=== PATIENT | female | born 1960 | race African-American/Black ===

== ENCOUNTER 2019-06-25 06:19 | Day surgery (SDC) | payer OTHER ==
[~2019-06-25] VITALS: Ht 162.6 cm; Wt 73.9 kg
[~2019-06-25 06:19] MED LIST: LISINOPRIL-HCT1 EAC4 PO
[2019-06-25 06:47] LABS: BASOPHILS 0.3 % (0-2); EOSINOPHILS 1.5 % (0-7); HEMATOCRIT 38.1 % (36.0-48.0); HEMOGLOBIN 12.7 g/dL (12-16); IMMATURE GRANULOCYTES 0.3 % (0-5); LYMPHOCYTES 34.1 % (15-50); MCH 28.3 pg (26.0-34.0); MCHC 33.3 g/dL (31.0-37.0); MCV 84.9 fL (80.0-100.0); MEAN PLATELET VOLUME 11.1 fL (7.4-10.4); MONOCYTES 4.1 % (2-11); NEUTROPHILS 59.7 % (40-80); PLATELET COUNT 175 10x3/uL (130-400); RBC 4.49 10x6/uL (4.00-5.40); RDW 14.1 % (11.5-14.5); WBC 6.9 10x3/uL (4.8-10.8)
[2019-06-25 07:11] LABS: CALC OSMOLALITY 283 mosm/kg (275-300); CARBON DIOXIDE 30.2 mmol/L (21.0-32.0); CHLORIDE - SERUM 106 mmol/L (98-107); CREATININE - SERUM 0.6 mg/dL (0.6-1.3); GLUCOSE 100 mg/dL (74-106); POTASSIUM - SERUM 3.7 mmol/L (3.5-5.1); SODIUM 142 mmol/L (136-145); UREA NITROGEN 16 mg/dL (7-18); eGFR NON AFRICAN AMERICAN > 90 mL/min (90-120)
[2019-06-25 07:40] VITALS: BP 146/84; Ht 162.6 cm; Wt 73.9 kg
[2019-06-25] MEDS ORDERED: HYDROCODON-ACE1 EA10 PO (09:46)
--- NOTE | 2019-06-25 12:13 | NUR ---
PATIENT AMBULATES TO BATHROOM WITHOUT UNSTEADINESS OR DIZZINESS. VOIDS LARGE AMOUNT URINE IN TOILET WITHOUT DIFFICULTY. RIGHT AC PIV DC'D WITH TIP INTACT. DISCHARGE INSTRUCTIONS REVIEWED WITH PATIETN AND DAUGHTER.
--- NOTE | 2019-07-02 13:49 | OP ---
PATIENT NAME: ADILSON DOAN MEDICAL RECORD: [id number] :60 LOCATION:D.OPS ADMISSION DATE: SURGEON: MILTON ANDREWS MD DATE OF OPERATION: 06/25/2019 PREOPERATIVE DIAGNOSES: 1. Gallstones. 2. Hypertension. POSTOPERATIVE DIAGNOSES: 1. Gallstones. 2. Hypertension. 3. Voky-Ihxx-Reismv syndrome. PROCEDURE: Laparoscopic cholecystectomy. SURGEON: Milton Andrews MD REPORT OF PROCEDURE: The patient's abdomen was prepped and draped in sterile fashion. A cutdown was made on the superior aspect of the umbilicus, 0 Vicryls were placed on the fascia bilaterally and the fascia was incised with 15-blade. I then bluntly entered the peritoneal cavity and placed a 12-mm Dimple port. Under direct visualization, a 5-mm trocar was placed in the epigastrium and two more 5-mm trocars were placed in the right subcostal region. Immediately, we could see that the patient had some adhesions of the liver to the diaphragm and anterior abdominal wall consistent with Etjw-Ntam-Pwluhh syndrome. We went ahead and took these down using electrocautery. We then grasped the gallbladder and this was elevated. There was no sign of any inflammatory changes. The cystic artery and cystic duct were dissected free and these were clipped proximally and distally and ligated in standard fashion. The gallbladder was taken off the liver bed using electrocautery and placed into an Endo Catch bag. Any bleeding from the liver bed was then treated with electrocautery. At this point, the ports and insufflation were then removed and the gallbladder was taken out through the umbilicus. The umbilical fascia was closed with interrupted 0 Vicryls times 3. The wounds were then irrigated out with normal saline and infused with 10 mL of 0.25% Marcaine with epinephrine. The skin incisions were all closed with subcutaneous 5-0 Monocryl and dressed appropriately. COMPLICATIONS: None. CONDITION: Stable. ANESTHESIA: General endotracheal and local. BLOOD LOSS: Minimal. TRANSINT:[id number] Voice Confirmation ID: [id number] DOCUMENT ID: [id number] cc: Aubree Chaparro APN OPERATIVE REPORT [id number] ADILSON DOAN CHRISTIAN MD at 1349 CC: AUBREE CHAPARRO APN [id number] DICTATION DATE: 06/25/19 0951 SOAPING DEPARTMENT SUPERVISOR: 06/25/19 1020 [facility] 06/25/19 [facility] [address] [place] [id number]
== END 2019-06-25 12:28 | disposition home or self-care (01) ==
LOC: D.OPS 06:19 → D.PAN 08:45 → D.OPS 08:45 → D.PAN 09:45 → D.OPS 09:45
PROVIDERS: ATTEND Surgery
DX: K80.80 Other cholelithiasis without obstruction (principal); I10 Essential (primary) hypertension